=== PATIENT | female | born 1990 | race Caucasian/White ===

== ENCOUNTER 2018-09-21 12:45 | Inpatient (IN) | payer BC ==
[~2018-09-21 12:45] MED LIST: Bupivacaine 0.25% HCL 30 ML VIAL ONE
[2018-09-21] MEDS ORDERED: Docusate 100 MG CAP PO PRN (13:12)
[2018-09-21] MEDS ORDERED: Carboprost 250 MCG/ML AMP IM PRN (13:12)
[2018-09-21] MEDS ORDERED: Ibuprofen 800 MG TAB PO PRN (13:12)
[2018-09-21] MEDS ORDERED: Zolpidem Tartrate 5 MG TAB PO PRN (13:12)
[2018-09-21] MEDS ORDERED: Promethazine HCl 25 MG/ML VIAL IM PRN (13:12)
[2018-09-21] MEDS ORDERED: Butorphanol Tartrate 1 MG/ML VIAL SLOW IVP PRN (13:12)
[2018-09-21] MEDS ORDERED: Diphenoxylate HCl/Atropine Tablet PO PRN ×2 (13:12)
[2018-09-21] MEDS ORDERED: Lidocaine 1% (PF) 30 ML VIAL SC PRN (13:12)
[2018-09-21] MEDS ORDERED: Ondansetron PF 4 MG/2 ML Vial IVP PRN (13:12)
[2018-09-21] MEDS ORDERED: Misoprostol 200 MCG TAB PR PRN (13:12)
[2018-09-21] MEDS ORDERED: NS / Oxytocin 40 units/1000ml 1,000 ML IV PRN (13:12)
[2018-09-21] MEDS ORDERED: HYDROcodone/Acetaminophen 5/325 mg Tablet PO PRN ×2 (13:12)
[2018-09-21] MEDS ORDERED: Acetaminophen 500 MG TAB PO PRN (13:12)
[2018-09-21] MEDS ORDERED: NS w/ Oxytocin 10 units 500 ML IV SCH (13:15)
--- NOTE | 2018-09-21 13:17 | PDOC.LDHP ---
Labor and Delivery H&P HPI: at 36 and 6/7 weeks, presents for medical induction of labor for GHTN, Oligohydramnios, and Class 3 Morbid Obesity. Current gestational age (weeks): 36 Due date: 10/13/18 Grav: 3 Para: 0 Current complications: gestational hypertension, oligohydramnios Abnormal US findings: Yes Current medications: pre-jesusita vitamins Social history: none - Physical Exam Vital signs reviewed and normal: yes General: NAD, resting Heart: RRR Lungs: nonlabored breathing Abdomen: NTTP Extremeties: no edema FHT: category 1 - Vaginal Exam cm dilated: 0 Effacement: 75% Station: -2 - Assessment L&D Assessment: medically indicated induction - Plan Plan: admit to L&D, labor augmentation if indicated
[2018-09-21] MEDS: Lactated Ringer's 1,000 ML IV SCH ×2 (13:39→14:41)
[2018-09-21 13:58] VITALS: BMI 49.2
[2018-09-21 14:06] LABS: Hemoglobin 11.9 g/dL (12.0-16.0); Mean Corpuscular HGB CONC 33.6 g/dL (32.0-36.0); Mean Corpuscular Hemoglobin 30.4 pg (27.0-31.0); Mean Corpuscular Volume 90.6 fL (78.0-98.0); Mean Platelet Volume 7.8 fL (7.4-10.4); Platelet Count 379 thou/uL (130-400); RBC Distribution Width 11.6 % (11.5-14.5); Red Blood Cell (RBC) Count 3.92 mill/uL (4.20-5.40); White Blood Cell (WBC) Count 11.5 thou/uL (4.8-10.8)
[2018-09-21 14:52] LABS: HBSAg Index 0.29 S/CO (0-0.99); Hep B Surf Ag Non-Reactive S/CO (NonReactive)
[2018-09-21 14:54] LABS: Syphilis Antibody Nonreactive (Nonreactive); Syphilis Antibody Index 0.06 S/CO (<1.00 Non-Reactive)
[2018-09-21] MEDS: Misoprostol 100 MCG TAB VAG SCH ×2 (14:57→21:01)
[2018-09-22] MEDS: Lactated Ringer's 1,000 ML IV SCH ×3 (01:14→11:09)
[2018-09-22] MEDS: NS w/ Oxytocin 10 units 500 ML IV SCH ×2 (05:01→23:33)
[2018-09-22] MEDS ORDERED: Fentanyl 4 mcg/Bup 0.1% Cadd 100 ML ONE (09:03)
[2018-09-22] MEDS ORDERED: Naloxone HCl 0.4 mg/ml Vial IVP PRN ×2 (10:34)
[2018-09-22] MEDS ORDERED: ePHEDrine/0.9% NaCl/PF SYRINGE 50 mg/10 ml SLOW IVP PRN (10:34)
[2018-09-22] MEDS ORDERED: diphenhydrAMINE 50 MG/ML VIAL IVP PRN (10:34)
[2018-09-22] MEDS ORDERED: Acetaminophen 325 MG TAB PO PRN (10:34)
[2018-09-22] MEDS ORDERED: Ondansetron PF 4 MG/2 ML Vial IVP PRN ×2 (10:34→15:50)
[2018-09-22] MEDS ORDERED: Lactated Ringer's 500 ML IV PRN (10:34)
[2018-09-22] MEDS ORDERED: Promethazine HCl 25 MG/ML VIAL IM PRN ×2 (10:34→15:50)
[2018-09-22] MEDS ORDERED: Communication Order-Pharmacy FS SCH (10:45)
[2018-09-22] MEDS ORDERED: Fentanyl 4 mcg/Bupivacaine 0.1% Cassette 100 ML EPIDURAL SCH (10:45)
[2018-09-22] MEDS ORDERED: Benzocaine-Menthol 82.5 ML CAN TOP PRN (15:50)
[2018-09-22] MEDS ORDERED: Milk Of Magnesia 30 ML UDCUP PO PRN (15:50)
[2018-09-22] MEDS ORDERED: Bisacodyl 10 MG SUPP PR PRN (15:50)
[2018-09-22] MEDS ORDERED: diphenhydrAMINE 25 MG CAP PO PRN (15:50)
[2018-09-22] MEDS ORDERED: Varicella virus, LIVE 0.5 ML VIAL SC ONE (15:50)
[2018-09-22] MEDS ORDERED: HYDROcodone/Acetaminophen 5/325 mg Tablet PO PRN ×2 (15:50)
[2018-09-22] MEDS ORDERED: Lanolin Ointment 7 GM TUBE TOP PRN (15:50)
[2018-09-22] MEDS ORDERED: Adacel (T-DAP) 0.5 ML SYRINGE IM ONE (15:50)
[2018-09-22] MEDS ORDERED: NS / Oxytocin 40 units/1000ml 1,000 ML IV SCH (15:50)
[2018-09-22] MEDS ORDERED: Preparation H Ointment 28 GM TUBE PR PRN (15:50)
[2018-09-22] MEDS ORDERED: Zolpidem Tartrate 5 MG TAB PO PRN (15:50)
[2018-09-22] MEDS ORDERED: Misoprostol 200 MCG TAB VAG PRN (15:50)
[2018-09-22] MEDS: Ferrous Sulfate 325 MG TAB PO SCH (17:07)
[2018-09-22] MEDS: Ibuprofen 800 MG TAB PO SCH ×2 (18:47→21:36)
[2018-09-22] MEDS: Docusate Calcium (SURFAK) 240 MG CAP PO SCH (21:36)
[2018-09-22] MEDS: Misoprostol 100 MCG TAB VAG SCH ×2 (23:32→23:33)
[2018-09-23 06:01] LABS: Hemoglobin 10.9 g/dL (12.0-16.0); Mean Corpuscular HGB CONC 32.8 g/dL (32.0-36.0); Mean Corpuscular Hemoglobin 29.5 pg (27.0-31.0); Mean Corpuscular Volume 90.2 fL (78.0-98.0); Platelet Count 359 thou/uL (130-400); RBC Distribution Width 11.7 % (11.5-14.5); Red Blood Cell (RBC) Count 3.68 mill/uL (4.20-5.40); White Blood Cell (WBC) Count 15.5 thou/uL (4.8-10.8)
[2018-09-23] MEDS: Ibuprofen 800 MG TAB PO SCH ×3 (06:08→21:53)
[2018-09-23] MEDS: Ferrous Sulfate 325 MG TAB PO SCH ×2 (07:50→17:07)
[2018-09-23] MEDS: Docusate Calcium (SURFAK) 240 MG CAP PO SCH ×2 (09:22→21:53)
--- NOTE | 2018-09-23 22:33 | PDOC.PP ---
Post Progress Note Post Day #: 1 PO intake tolerated: yes Flatus: yes Ambulation: yes Vital Signs (12 hours) Temp Pulse Resp BP Pulse Ox 09/23/18 20:00 97.5 F L 88 18 113/63 98 09/23/18 17:31 97.9 F 79 20 133/83 Weight Weight 287 lb - Physical Examination General: NAD Cardiovascular: no m/r/g, RRR Respiratory: clear to auscultation bilaterally, non-labored breathing Abdominal: + bowel sounds, lochia, no distention, appropriately TTP Extremities: negative homans (B) Neurological: no gross focal deficits Psychiatric: A&Ox3 (DC home planned tomorrow.), normal affect Result Diagrams: 09/23/18 05:32 Additional Labs: Post Labs Blood Type O POSITIVE 09/21/18 14:21 Hep Bs Antigen Non-Reactive S/CO (NonReactive) 09/21/18 13:47
--- NOTE | 2018-09-24 02:35 | DN ---
DATE OF PROCEDURE: 09/22/2018 PREOPERATIVE DIAGNOSES: Intrauterine at 37 weeks and 0 days with a term induction of labor for oligohydramnios as well as chronic hypertension and type 3 morbid obesity. POSTOPERATIVE DIAGNOSES: Intrauterine at 37 weeks and 0 days with a term induction of labor for oligohydramnios as well as chronic hypertension and type 3 morbid obesity. PROCEDURE PERFORMED: Spontaneous vaginal delivery over a first-degree laceration of the perineum. FINDINGS: Viable male weighing 3313 g or 7 pounds 5 ounces. Apgars 8 and 9. QUANTITATIVE BLOOD LOSS: 210 mL. COMPLICATIONS: None. DESCRIPTION OF PROCEDURE: The patient presented to [facility] where she was admitted to the labor and delivery service. The patient underwent a normal and uneventful labor with normal cervical dilatation until she was found to be completely dilated. She was then allowed to push and was able to bring the baby down and delivered the baby in a vertex presentation without difficulties. Once the head delivered in occiput anterior position, the shoulders followed spontaneously along with the rest of the baby's body. Once out the baby's mouth and nose were bulb suctioned. The cord was clamped and cut and baby was handed to waiting attendants. Cord blood was collected. Gentle fundal massage was performed and the placenta delivered intact without problems. Hemostasis was assured. Quantitative blood loss was calculated. Inspection of the cervix, vaginal vault, and perineum did not reveal any lacerations needing suturing. Once again, hemostasis was within normal limits and the patient was allowed to recover in the labor and delivery room. Baby went to nursery. The patient was delivering quite precipitously without even pushing with Dr. Danis Stanley MD present at the bedside as the baby began to crown. I arrived seconds later as the baby was being placed on the chest and cord clamped and cut, I was able to glove and gown and assist with the remainder of the delivery including complete delivery of the placenta as well as repair of the perineum. After discussing the delivery with Dr. Stanley, the patient delivered without pushing with an epidural through the spontaneous contractions of her uterus only. No difficulties were encountered with the delivery of the baby. Job ID: [id number]
[2018-09-24] MEDS: Ibuprofen 800 MG TAB PO SCH ×2 (05:23→14:33)
[2018-09-24 08:06] VITALS: BP 127/74; TEMP 98
[2018-09-24] MEDS: Docusate Calcium (SURFAK) 240 MG CAP PO SCH (09:18)
[2018-09-24] MEDS: Ferrous Sulfate 325 MG TAB PO SCH (09:18)
== END 2018-09-24 16:20 | disposition home or self-care (01) | DRG 806 ==
LOC: L&D/OP 12:45 → EDSTATUS 12:47 → L&D 12:48 → 3SW 09-22 16:25
PROVIDERS: ADMIT Obstetrics & Gynecology; ATTEND Obstetrics & Gynecology
PROC: 10E0XZZ Delivery of Products of Conception, External Approach (ICD-10-PCS; principal; 2018-09-22)
PROC: 0HQ9XZZ Repair Perineum Skin, External Approach (ICD-10-PCS; 2018-09-22)
DX: O13.4 Gestational [pregnancy-induced] hypertension without significant proteinuria, complicating childbirth (principal); O41.03X0 Oligohydramnios, third trimester, not applicable or unspecified; Z37.0 Single live birth; O99.214 Obesity complicating childbirth; E66.01 Morbid (severe) obesity due to excess calories; Z3A.37 37 weeks gestation of pregnancy
CPT/HCPCS: 36415; 51702; 85027; 86780; 86850; 86900; 86901; 87340; J2590; S0020